=== PATIENT | male | born 1980 | race Caucasian/White ===

== ENCOUNTER 2017-04-09 09:20 | Emergency (ER) | payer BC ==
[~2017-04-09] VITALS: Ht 188 cm; Wt 120.2 kg
[2017-04-09 09:20] VITALS: BP 122/81
== END 2017-04-09 10:20 | disposition home or self-care (01) ==
LOC: ER 09:23
DX: S93.402A Sprain of unspecified ligament of left ankle, initial encounter (principal); F17.200 Nicotine dependence, unspecified, uncomplicated; Z90.89 Acquired absence of other organs; W22.8XXA Striking against or struck by other objects, initial encounter; Y93.01 Activity, walking, marching and hiking; Y92.89 Other specified places as the place of occurrence of the external cause; Y99.9 Unspecified external cause status
CPT/HCPCS: 73610-TC; A4606; Z7610